=== PATIENT | female | born 1995 | race Two or more races ===

== ENCOUNTER 2018-04-04 08:08 | Emergency (ER) | payer OTHER ==
[~2018-04-04] VITALS: Ht 162.6 cm; Wt 59.0 kg
[~2018-04-04 08:08] MED LIST: PEPCID20 MG PO; PRENATAL CAPLE1 EACH PO; PRENATAL TABLE1 EAC1 PO; SULFAMETHOXAZOL1 TA3 PO; ZOFRAN4 MG PO; ZOFRAN4 MG SL
[2018-04-04] MEDS ORDERED: TUSSI PRES-B L120 M1 PO (11:25)
[2018-04-04] MEDS ORDERED: ZITHROMAX500 MG PO (11:25)
== END 2018-04-04 12:20 | disposition home or self-care (01) ==
LOC: ER 08:08
DX: J03.90 Acute tonsillitis, unspecified (principal)

== ENCOUNTER 2018-06-29 17:13 | Emergency (ER) | payer OTHER ==
[~2018-06-29] VITALS: Ht 162.6 cm; Wt 56.7 kg
[~2018-06-29 17:13] MED LIST changes: +TUSSI PRES-B L120 M1 PO; +ZITHROMAX500 MG PO
== END 2018-06-29 20:11 | disposition home or self-care (01) ==
LOC: ER 17:13
DX: J06.9 Acute upper respiratory infection, unspecified (principal); J01.80 Other acute sinusitis

== ENCOUNTER 2018-08-10 07:58 | Emergency (ER) | payer OTHER ==
[~2018-08-10] VITALS: Ht 162.6 cm; Wt 59.0 kg
== END 2018-08-10 11:13 | disposition home or self-care (01) ==
LOC: EMR PED 07:58 → ER 08:01 → EMR PED 08:01 → ER 11:13
DX: M54.2 Cervicalgia (principal)

== ENCOUNTER 2020-06-04 20:23 | Emergency (ER) | payer OTHER ==
[~2020-06-04] VITALS: Ht 162.6 cm; Wt 65.8 kg
[2020-06-05] MEDS ORDERED: PHENAGIL TABLE1 EACH PO (01:27)
[2020-06-05] MEDS ORDERED: EMERGEN-C 500500 MG PO (01:28)
== END 2020-06-05 01:47 ==
LOC: ER 20:23
DX: J11.1 Influenza due to unidentified influenza virus with other respiratory manifestations (principal); U07.1 COVID-19

== ENCOUNTER 2020-08-10 17:03 | Emergency (ER) | payer OTHER ==
[~2020-08-10] VITALS: Ht 162.6 cm; Wt 65.8 kg
[~2020-08-10 17:03] MED LIST changes: +EMERGEN-C 500500 MG PO; +PHENAGIL TABLE1 EACH PO
== END 2020-08-10 21:51 | disposition home or self-care (01) ==
LOC: ER 17:03
DX: M79.18 Myalgia, other site (principal); R50.9 Fever, unspecified; Z11.52 Encounter for screening for COVID-19

== ENCOUNTER 2020-08-11 10:18 | Emergency (ER) | payer OTHER ==
[~2020-08-11] VITALS: Ht 162.6 cm; Wt 65.8 kg
== END 2020-08-11 21:39 | disposition home or self-care (01) ==
LOC: ER 10:18
DX: K52.9 Noninfective gastroenteritis and colitis, unspecified (principal); R50.9 Fever, unspecified; M79.18 Myalgia, other site

== ENCOUNTER 2021-02-03 23:21 | Emergency (ER) | payer OTHER ==
[~2021-02-03] VITALS: Ht 162.6 cm; Wt 64.4 kg
[2021-02-04] MEDS ORDERED: LEVSIN0.125 MG PO (03:53)
[2021-02-04] MEDS ORDERED: INTESTINEX680 M2 PO (03:53)
[2021-02-04] MEDS ORDERED: PEPCID AC20 MG PO (03:53)
[2021-02-19] MEDS ORDERED: ACETAMINOPHEN650 M2 (07:08)
== END 2021-02-04 04:03 | disposition home or self-care (01) ==
LOC: ER 23:21
DX: K52.89 Other specified noninfective gastroenteritis and colitis (principal); Z20.822 Contact with and (suspected) exposure to COVID-19

== ENCOUNTER 2021-06-30 14:15 | Emergency (ER) | payer OTHER ==
[~2021-06-30] VITALS: Ht 162.6 cm; Wt 60.3 kg
[~2021-06-30 14:15] MED LIST changes: +ACETAMINOPHEN650 M2; +INTESTINEX680 M2 PO; +LEVSIN0.125 MG PO; +PEPCID AC20 MG PO
== END 2021-06-30 17:58 | disposition home or self-care (01) ==
LOC: ER 14:15
DX: K52.9 Noninfective gastroenteritis and colitis, unspecified (principal); Z20.822 Contact with and (suspected) exposure to COVID-19

== ENCOUNTER 2023-01-19 19:32 | Emergency (ER) | payer OTHER ==
[~2023-01-19] VITALS: Ht 162.6 cm; Wt 66.2 kg
== END 2023-01-19 22:03 | disposition home or self-care (01) ==
LOC: ER 19:32
DX: R05.9 Cough, unspecified (principal); Z20.822 Contact with and (suspected) exposure to COVID-19